=== PATIENT | female | born 1980 | race Caucasian/White ===

== ENCOUNTER → 2017-03-28 | Outpatient (CLI) | payer OTHER | LOC: FIMAGING 10:55 | PROVIDERS: ATTEND Advanced Practice Midwife | DX: O09.521 Supervision of elderly multigravida, first trimester (principal); Z3A.12 12 weeks gestation of pregnancy ==

== ENCOUNTER → 2017-05-18 | Outpatient (CLI) | payer OTHER | LOC: FIMAGING 07:50 | PROVIDERS: ATTEND Advanced Practice Midwife | DX: O09.522 Supervision of elderly multigravida, second trimester (principal); O34.219 Maternal care for unspecified type scar from previous cesarean delivery; Z3A.20 20 weeks gestation of pregnancy ==

== ENCOUNTER 2017-09-13 05:35 | Inpatient (IN) | payer OTHER ==
--- NOTE | 2017-08-30 18:17 | GHP ---
[f rep st] HISTORY AND PHYSICAL DATE OF ADMISSION: 09/13/2017 ADMITTING DIAGNOSES: 1. Intrauterine at 37 weeks. 2. Cholestasis of . 3. Previous section. 4. Repeat section, declines trial of labor. 5. Request for permanent sterilization, family status is complete. HISTORY OF PRESENT ILLNESS: Patient is a 37-year-old 3, para 1-0-1-1, at 37 weeks with estimated due date 10/04/2017 by LMP 12/28/2016, and consistent with first trimester ultrasound at 9 weeks. Patient presents to Labor and Delivery for repeat section and also requests permanent sterilization, stating family status is complete. She states good movement. Denies any leakage of fluid, vaginal bleeding, or contractions at this time. Patient does have good care at [facility], and presented in her first trimester. Patient has a history of a previous C- section and was induced secondary to cholestasis and then had an urgent C- section for failure of descent in 2nd stage of labor and chorioamnionitis at 38 weeks and 1 day. Patient also developed cholestasis in this , and has had reassuring testing, gets weekly labs that have remained stable, and is doing well on Ursodiol. [facility] has been following the patient and recommends delivery at 37 weeks. is also complicated by advanced maternal age, but NIPT is negative. A level 2 ultrasound revealed normal anatomy with an estimated weight in 84th percentile. 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 Patient did receive Tdap during the . She developed anemia of and tolerating iron. PAST OB HISTORY: In 1999, she had a therapeutic with a D and C. In 2010, she had a at 38 weeks, a viable female infant weighing 7 pounds. She was induced secondary to cholestasis. Age of menarche 11. Cycles are every 24 days for 2 days. LMP 12/28/2016. Patient denies a history of abnormal Pap smears. 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 Denies exposure to any sexually transmitted diseases. PAST MEDICAL HISTORY: She needed a blood transfusion for severe anemia with first . Migraine headaches, some are with aura. She had a major accident, left femur fracture at 8 years of age, and was hospitalized for 1 month. PAST SURGICAL HISTORY: ACL surgery x2, D and C, and . CURRENT MEDICATIONS: Include vitamins, iron, and Ursodiol. ALLERGIES: No known drug allergies. SOCIAL HISTORY: Patient is . She lives with her and their daughter. She works for the [employer]. She denies any alcohol, tobacco, illicit drug use. She is lactose intolerant. FAMILY HISTORY: Maternal uncle with atypical lung cancer. Maternal grandmother with Alzheimer disease. Sister has depression, anxiety. Mother is Cain-Sachs carrier. REVIEW OF SYSTEMS: 10-point review of systems negative. Pertinent positives noted in HPI. LABS: The patient is B negative, antibody negative. RPR nonreactive. Rubella immune. Hepatitis B surface antigen negative. HIV negative. 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 Father of baby is negative. Innatal screen negative. Patient did receive RhoGAM on 07/11/2017. One-hour Glucola 81. H and H 12.7 and 35.7. Single AFP was negative. Bile acids, elevated deoxycholic at 12.24. GBS cx unknown. PHYSICAL EXAMINATION: VITAL SIGNS: Stable. Patient is afebrile. GENERAL: Well-nourished well-developed female. CARDIOVASCULAR: Regular rate and rhythm. LUNGS: Clear to auscultation bilaterally. ABDOMEN: Gravid, soft, nontender. PELVIC: Deferred. EXTREMITIES: Normal to inspection without calf tenderness or edema. ASSESSMENT/PLAN: Patient is a 37-year-old 3, para 1-0-1-1, at 37 weeks with a previous section with cholestasis of , for a repeat section, and requests permanent sterilization, family status complete. 1. Admit to Labor and Delivery for RCS. 2. Discussed risks, benefits, alternatives of the procedure including but not limited to bleeding, infection, and damage to surrounding organs. Also discussed possible salpingectomy versus bilateral tubal ligation. Salpingectomy is for risk reduction of ovarian cancer. Discussed risk of ectopic and failure rate of bilateral tubal ligation. Will perform safest procedure at time of c/s with least risk of bleeding. Surgical consents were obtained. Patient understands all risks of the procedures and wants to proceed with surgery at this time. 3. Antibiotics orthodontic assistant to operating room. 4. Sequential compression devices for deep vein thrombosis prophylaxis. /[id number]/MODL MTDD
[2017-09-13] MEDS ORDERED: LR 500 ML IV ONE (06:34)
[2017-09-13] MEDS ORDERED: CITRIC ACID/SODIUM CITRATE 30 ML UDCUP PO ONE (06:34)
[2017-09-13] MEDS ORDERED: ceFAZolin 2 GM/DEXTROSE 100 ML IV ONE (06:34)
[2017-09-13 06:45] LABS: PLATELET COUNT 130 10^3/uL (150-400)
[2017-09-13] MEDS ORDERED: LR 1,000 ML IV SCH (07:00)
[2017-09-13] MEDS ORDERED: AMMONIA AROMATIC 1 EACH AMP IH ONE (07:09)
[2017-09-13] MEDS ORDERED: LIDOCAINE 1% 300 MG/30 ML SDV ONE (07:09)
[2017-09-13] MEDS ORDERED: OXYTOCIN 10 UNIT/ML VIAL ONE (07:09)
[2017-09-13] MEDS ORDERED: TERBUTALINE SULFATE 1 MG/ML VIAL ONE (07:09)
[2017-09-13] MEDS ORDERED: MISOPROSTOL 200 MCG TAB ONE (07:09)
[2017-09-13] MEDS ORDERED: OLIVE OIL 118 ML BTL ONE (07:09)
--- NOTE | 2017-09-13 07:32 | PREANESOB ---
Obstetric Pre-Anesthesia Info - General Info Proposed Procedure: Repeat C Section. : 3 Para: 1 - Info Status: Full Term Monitors: External FHR Baseline (bpm): 155 FHR Pattern: Reassuring - Labor Status Indications for Current Section: Elective/Repeat Labor Epidural: No Anesthesia ROS: Negative. Allergies/Adverse Reactions: Allergy/AdvReac Type Severity Reaction Status Date / Time No Known Allergies Allergy Verified 09/11/17 14:07 Home Medications: Medication Instructions Recorded Calcium Carbonate [Tums 500MG (*)] 500 mg PO DAILY PRN 09/11/17 Folic Acid [Folic Acid 1 MG (*)] 1 mg PO DAILY 09/11/17 Herbals/Supplements -Info Only 1 each PO DAILY 09/11/17 Norethindrone 0.35 mg PO DAILY 09/11/17 Vit27&Calcium/Iron/FA 1 each PO DAILY 09/11/17 [ Rx 1 Tablet (RX)] Ursodiol [Actigall 300MG (*)] 300 mg PO BID 09/11/17 Visit Medications: Generic Name Dose Route Start Last Admin Trade Name Freq PRN Reason Stop Dose Admin Lactated Ringer's 1,000 mls @ 125 mls/hr 09/13/17 07:00 Lr IV 09/14/17 06:59 CONT CHRISTINE Discontinued Medications Generic Name Dose Route Start Last Admin Trade Name Freq PRN Reason Stop Dose Admin Ammonia (Aromatic Spirit) Confirm 09/13/17 07:09 Ammonia Aromatic Administered 09/13/17 07:10 Dose 1 each IH .STK-MED ONE Citric Acid/Sodium Citrate 30 ml 09/13/17 06:34 Bicitra PO 09/13/17 06:35 ONCALL ONE Cefazolin Sodium/Dextrose 100 mls @ 200 mls/hr 09/13/17 06:34 Ancef 2 Gm IV 09/13/17 07:03 ONCALL ONE Protocol Lactated Ringer's 500 mls @ 0 mls/hr 09/13/17 06:34 Lr IV 09/13/17 06:35 ONCE ONE As Directed Lidocaine HCl Confirm 09/13/17 07:09 Lidocaine Hcl 1% Administered 09/13/17 07:10 Dose 300 mg .ROUTE .STK-MED ONE Misoprostol Confirm 09/13/17 07:09 Cytotec Administered 09/13/17 07:10 Dose 1,000 mcg .ROUTE .STK-MED ONE [place] Oil Confirm 09/13/17 07:09 Sweet Oil Administered 09/13/17 07:10 Dose 118 ml .ROUTE .STK-MED ONE Oxytocin Confirm 09/13/17 07:09 Pitocin Administered 09/13/17 07:10 Dose 40 unit .ROUTE .STK-MED ONE Terbutaline Sulfate Confirm 09/13/17 07:09 Brethine Administered 09/13/17 07:10 Dose 1 mg .ROUTE .STK-MED ONE - Anesthesia History Response to Local Anesthetics: Normal Anesthesia & Operative History: No Prior Problems Family Anesthesia History: Negative - Social History Substance Use/Abuse: Denies - Vital Signs Blood Pressure: 123/72 Heart Rate: 117 - Focused Exam Neck exam: FROM Mallampati Score: Class 2 Mouth exam: normal dental/mouth exam Pulmonary: no respiratory distress Cardiovascular: regular rate and rhythym Labs: 09/13/17 06:30 - Plan Anesthetic Plan: SAB Consent Signed and on Chart: Yes Patient/Guardian Understands and Agrees to Plan: Yes
[2017-09-13] MEDS ORDERED: fentaNYL 100 MCG/2 ML INJ ONE (07:38)
[2017-09-13] MEDS ORDERED: morphINE PF 5 MG/10 ML INJ ONE (07:38)
[2017-09-13] MEDS ORDERED: OXYTOCIN 100 UNITS/10 ML VIAL ONE (08:11)
[2017-09-13] MEDS ORDERED: PHENYLEPHRINE HCL 100 MCG/ML SYR ONE (08:12)
[2017-09-13] MEDS ORDERED: ONDANSETRON 4 MG/2 ML VIAL ONE (08:12)
[2017-09-13] MEDS ORDERED: DEXAMETHASONE 4 MG/ML VIAL ONE (08:12)
[2017-09-13] MEDS ORDERED: SCOPOLAMINE HYDROBROMIDE 1 MG/3 DAYS PATCH TD ONE ×2 (09:35→10:36)
[2017-09-13] MEDS ORDERED: DOCUSATE SODIUM 100 MG CAP PO PRN (09:38)
[2017-09-13] MEDS ORDERED: POLYETHYLENE GLYCOL 3350 17 GM PKT PO PRN (09:38)
[2017-09-13] MEDS ORDERED: MAGNESIUM HYDROXIDE 30 ML UDCUP PO PRN (09:38)
[2017-09-13] MEDS ORDERED: BISACODYL 10 MG SUPP PR PRN (09:38)
[2017-09-13] MEDS ORDERED: LACTULOSE 20 GM/30 ML UDCUP PO PRN (09:38)
[2017-09-13] MEDS ORDERED: PROMETHAZINE HCL 25 MG/ML INJ IVP PRN (09:38)
--- NOTE | 2017-09-13 09:47 | OBDEL ---
Info Type: Repeat Presentation at Delivery: Vertex L&D Analgesia/Anesthesia Type: Spinal GBS+: No Intrapartum Medications: Discontinued Medications Generic Name Dose Route Start Last Admin Trade Name Sondra PRN Reason Stop Dose Admin Citric Acid/Sodium Citrate 30 ml 09/13/17 06:34 09/13/17 07:40 Bicitra PO 09/13/17 06:35 30 ml ONCALL ONE Administration Cefazolin Sodium/Dextrose 100 mls @ 200 mls/hr 09/13/17 06:34 09/13/17 07:40 Ancef 2 Gm IV 09/13/17 07:03 100 mls ONCALL ONE Administration Protocol - Infant Care Provider Blood Bank Attendant/SAP PI ARCHITECT: Elba Hunter - Hospital Course Intrapartum: 09/13/17 09:44 IUP @ 37 weeks, previous c/s with cholestasis; request for permanent sterilization-family status complete Indications for Delivery: Elective (Previous c/s; Cholestasis of ; Request for permament sterilization-family status complete) Operative Report - Delivery Pre-op Diagnoses: IUP @ 37 weeks with previous c/s and cholestasis of ; request for permament sterilization-family status complete Post-op Diagnoses: IUP @ 37 weeks with previous c/s and cholestasis of ; request for permament sterilization-family status complete History of Prior Section: Yes Number of Prior Sections: 1 Nulliparous Prior to Delivery: No Indications for Prior Section: Other (Specify) (Arrest of descent; chorio) Indications for Current Section: Elective/Repeat (Cholestasis of ) Procedure: Scheduled, Low Transverse, Tubal Ligation (Modified Dank) Surgeon: Mellissa Brunson Rfid Analyst: Safia Galvin Anesthesiologist: Alex Rojas Complications: None Findings: A viable female born at 0827 in cephalic presentation with 9 and 9 Apgars. Delayed cord clamping x 60 sec. to waiting [facility]. Cord blood obtained. Placenta delivered spontaneously intact with 3-vc, suspect abruption- sent to pathology. DAILY thin upon making hysterotomy. Grossly normal appearing uterus, tubes and ovaries. Modified Butler technique for BTL-portions of b/l tubes sent to path. Pt sahil well. No complications. Specimen(s)/Path: Placenta, Fallopian Tube(s) IV Fluid (ml): 3,200 EBL: 800cc UO: 300 cc clear urine [place] Data DONI: 10/04/17 Gestational Age: 37 week(s) and 0 day(s) [place] Delivery Date: 09/13/17 Delivery Time: 08:27 Sex of Infant: Female Score (1 Min): 9 Score (5 Min): 9 ICD10 Worksheet Patient Problems: Problems Problem Status Onset Cholestasis during Acute Previous delivery affecting Acute Status post repeat low transverse section Acute Sterilization Acute - ICD10 Problem Qualifiers (1) Cholestasis during (2) Previous delivery affecting (3) Sterilization (4) Status post repeat low transverse section
--- NOTE | 2017-09-13 09:56 | PDHPUP ---
History & Physical Update H&P update statement: This history and physical update is based on an assessment of the patient which was completed after admission or registration (within 24 hours), but prior to the surgery/procedure. H&P update: H&P reviewed & patient examined, no change in patient's condition since H&P completed
[2017-09-13] MEDS ORDERED: ONDANSETRON 4 MG/2 ML VIAL IVP PRN (10:34)
[2017-09-13] MEDS ORDERED: PHENYLEPHRINE HCL 100 MCG/ML SYR IVP PRN (10:34)
[2017-09-13] MEDS ORDERED: NALOXONE HCL 0.4 MG/ML INJ IVP PRN (10:34)
--- NOTE | 2017-09-13 10:37 | POSTANESTH ---
Post Anesthetic Evaluation Cardiovascular Status: Normal, Stable, Similar to Pre-Op Cond Respiratory Status: Normal, Stable, Similar to Pre-op Cond. Level of Consciousness/Mental Status: Can Participate in Eval, Alert and Oriented Pain Control: Adequate, Prn Tx Ordered Nausea/Vomiting Control: Adequate, Prn Tx Ordered Complications Possibly Related to Anesthesia: None Noted
[2017-09-13] MEDS: KETOROLAC 30 MG/1 ML SDV IVP SCH ×2 (11:45→18:36)
[2017-09-14] MEDS: SENNOSIDES/DOCUSATE SODIUM TAB PO SCH ×3 (00:07→20:35)
[2017-09-14] MEDS: KETOROLAC 30 MG/1 ML SDV IVP SCH ×2 (00:07→05:55)
[2017-09-14 05:25] LABS: PLATELET COUNT 110 10^3/uL (150-400)
--- NOTE | 2017-09-14 08:18 | GOP ---
[f rep st] OPERATIVE REPORT DATE OF OPERATION: 09/13/2017 SURGEON: Mellissa Brunson DO PEARL MAKER: Safia Galvin CNM. ANESTHESIA: Spinal. ANESTHESIOLOGIST: Alex Rojas MD. PREOPERATIVE DIAGNOSIS: Intrauterine at 37 weeks, previous , with cholestasis of . Request for permanent sterilization, family status is complete. POSTOPERATIVE DIAGNOSIS: Intrauterine at 37 weeks, previous , with cholestasis of . Request for permanent sterilization, family status is complete. PROCEDURE PERFORMED: Repeat section, bilateral tubal ligation via modified Vancleve technique. FINDINGS: A viable female born at 0827, in cephalic presentation with 9 and 9 Apgars. Delayed cord clamp x60 seconds. Cord blood obtained. Placenta delivered spontaneously intact with 3-vessel cord. Suspect abruption, placenta sent to Pathology. Lower uterine segment was noted to be thin upon hysterotomy. Grossly normal appearing uterus, tubes, and ovaries. SPECIMENS: Placenta and portions of bilateral tubes. ESTIMATED BLOOD LOSS: 800 cc. INDICATIONS: The patient is a 37-year-old 3, para 1-0-1-1 at 37 weeks who presents for a repeat section. She requests permanent sterilization at this time, stating family status is complete. The patient has a history of a previous induced secondary to cholestasis and then had an urgent with failure of descent in second stage of labor and chorioamnionitis. The patient also developed cholestasis in this and has had reassuring testing. She has gotten weekly labs and remained stable and is doing well on the Ursodiol. [facility] has been following the patient and recommended delivery at 37 weeks. Surgical consents were obtained. Discussed risks, benefits, alternatives of the procedure including but not limited to, bleeding, infection, damage of surrounding organs, and possible hysterectomy as well as risks of the bilateral tubal ligation including failure rate and risk ectopic which is less than 2%. Patient understands all risks of the surgery at this time and wants to proceed. Patient was properly consented. DESCRIPTION OF PROCEDURE: The patient was taken to the operating room where spinal anesthesia was obtained without difficulty. The patient was then placed in dorsal supine position with leftward tilt. The patient was then prepped and draped in the usual standard fashion. Donald catheter was placed at this time. After WHO time-out was performed, a Pfannenstiel skin incision was made in the old scar and carried through to the fascia with the Bovie. The fascia was then incised in the midline and extended laterally using the Blake scissors. Superior aspect of the incision was grasped with Corina clamps and the underlying rectus muscles were then dissected away sharply using the Blake scissors. In a similar fashion, the inferior aspect of the incision was grasped with Corina clamps and the rectus muscles were dissected away sharply using the Blake scissors. Rectus muscles were then in the midline. The peritoneum was then identified and entered bluntly taking care to avoid the bladder. The vesicouterine peritoneum was then identified and grasped with pickups and entered sharply with the Metzenbaum scissors. A bladder flap was then created digitally and a bladder blade was then inserted. The lower uterine segment was visualized and a low transverse uterine incision was then made with a knife and extended anteriorly and posteriorly in a blunt fashion. Clear fluid was noted upon entry of the amniotic sac. The vertex was able to be grasped, and elevated up to the incision. The remainder of the fetus was delivered easily with the assistance of fundal pressure. Delayed cord clamping did occur for 60 seconds. The cord was then clamped x2 and cut. handed to [facility]. Cord blood was obtained. Placenta was then delivered spontaneously intact with a 3-vessel cord. It did look like there was an abruption, so placenta was sent to Pathology. The uterus was then exteriorized and cleared of all clots and debris. The hysterotomy was then repaired in 2 layers with 0 Vicryl suture. First layer was a running locked stitch of 0 Vicryl. Hemostasis was noted. The second layer was an imbricating layer also with 0 Vicryl suture. Uterine incision was inspected, and appeared hemostatic. We then turned our attention to fallopian tubes. The right tube was visualized and grasped with a Melchor clamp. It was followed out to fimbria. We decided to do a tubal ligation secondary to increased vasculature and risk of bleeding. A 3 cm segment of tube was then suture ligated with plain gut x2 and excised. Good hemostasis was noted and the lumen of tube was cauterized. Similar procedure was done on the left side. Portions of bilateral tubes were sent to pathology. No bleeding was noted. At this time, the uterus was then placed back inside the abdomen. The gutters were cleared of all clots and debris. Uterine incision was then visualized again and there was some bleeding noted from left angle, so [id number] stitch of 0 Vicryl was used and Farhan was placed on the uterine incision and hemostasis was achieved. The muscles were then reapproximated using 3-0 Vicryl. The fascia was then closed with 0 Vicryl in a running fashion. Hemostasis was noted. The subcutaneous layer was closed with 2-0 Vicryl in a running fashion. Skin was then with 4-0 Vicryl on a Benny needle. The patient tolerated the procedure well. No complications. Sponge, lap, and needle counts correct x2. The patient was then taken out of the dorsal supine position leftward tilt and sent to recovery room and PACU in stable condition. IV FLUIDS: 3200 cc LR. URINE OUTPUT: 300 cc of clear urine at the end of the procedure. /[id number]/MODL MTDD
--- NOTE | 2017-09-14 09:59 | OBPP ---
Progress Note Assessment/Plan: Assessment: [id number] s/p repeat c/s cholestasis in POD#1 Plan: routine PO care promote flatus ambulate support PRN plan d/c home 24-48hrs 09/14/17 09:45 09/14/17 10:05 Subjective/ Course: 09/14/17 09:46 Pt doing well, she denies any pain or bleeding. She is OOB and eating breakfast. She is . She is ambulating and voiding without difficulty. FOB at BS, supportive. Denies any flatus. 09/14/17 09:47 Objective: 09/14/17 05:10 Patient ABO/Rh B NEGATIVE 09/13/17 10:35 Temp Pulse Resp BP Pulse Ox 36.3 C 60 16 82/47 L 95 09/14/17 08:17 09/14/17 08:17 09/14/17 08:17 09/14/17 08:17 09/14/17 08:17 Uterine Position/Fundal Height: Umbilicus -1, Midline Uterine Tone: Firm
[2017-09-14] MEDS ORDERED: PATCH REMOVAL 1 EA PATCH TD ONE (10:36)
[2017-09-14] MEDS: SIMETHICONE 80 MG TAB CHEW PO PRN ×2 (12:10→19:05)
[2017-09-14] MEDS: IBUPROFEN 600 MG TAB PO PRN ×2 (12:10→18:10)
[2017-09-14] MEDS: HYDROCODONE/APAP 5/325 TAB PO PRN ×3 (13:09→20:34)
[2017-09-15] MEDS: IBUPROFEN 600 MG TAB PO PRN ×2 (00:25→06:25)
[2017-09-15] MEDS: HYDROCODONE/APAP 5/325 TAB PO PRN ×3 (00:49→11:09)
[2017-09-15] MEDS: SENNOSIDES/DOCUSATE SODIUM TAB PO SCH (09:14)
--- NOTE | 2017-09-15 11:00 | OBPP ---
Progress Note Assessment/Plan: Assessment: 37 yo [id number], POD#2 s/p R-C/S with bilateral salpingectomy - doing well. Plan:DC home, routine post op/pp cares, instructions and ssx pp depression reviewed. See DC summary. 09/15/17 10:56 Subjective/ Course: 09/14/17 09:46 Pt doing well, she denies any pain or bleeding. She is OOB and eating breakfast. She is . She is ambulating and voiding without difficulty. FOB at BS, supportive. Denies any flatus. 09/14/17 09:47 09/15/17 10:57 Doing well, Ambulating, voiding, sahil reg diet, min lochia. BF going well. + flatus. Objective: 09/14/17 05:10 Patient ABO/Rh B NEGATIVE 09/13/17 10:35 Temp Pulse Resp BP Pulse Ox 37.1 C 71 14 98/62 L 95 09/14/17 20:43 09/14/17 20:43 09/14/17 20:43 09/14/17 20:43 09/14/17 20:43 gen - pleasant, Nad cv - RRR CHEST - CTAB abd - gravid, soft, + BS, fundus firm u-2, incision - C/D/I, small open sore above incision c/w mole removal ext - calves NT, trace edema Uterine Position/Fundal Height: Umbilicus -2 Uterine Tone: Firm
[2017-09-15 11:05] VITALS: BP 113/64
--- NOTE | 2017-09-15 12:23 | OBGCSDC ---
General Delivery Information - General Info : 3 Para: 2 Abortions: 1 Type: Repeat L&D Analgesia/Anesthesia Type: Spinal Admission Date: 09/13/17 Labs: Patient ABO/Rh B NEGATIVE 09/13/17 10:35 Hct 28.9 % (38.0-47.0) L 09/14/17 05:10 - Hospital Course Intrapartum: 09/13/17 09:44 IUP @ 37 weeks, previous c/s with cholestasis; request for permanent sterilization-family status complete : 09/14/17 09:46 Pt doing well, she denies any pain or bleeding. She is OOB and eating breakfast. She is . She is ambulating and voiding without difficulty. FOB at BS, supportive. Denies any flatus. 09/14/17 09:47 09/15/17 10:57 Doing well, Ambulating, voiding, sahil reg diet, min lochia. BF going well. + flatus. - Delivery Providers Surgeon: Mellissa Brunson Animal Rides Manager: Safia Galvin Anesthesiologist: Alex Rojas - Delivery Number of Prior Sections: 1 Indications for Current Section: Elective/Repeat (Cholestasis of ) Surgical Procedures: Scheduled, Low Transverse, Tubal Ligation (Modified Dank ) Intra-op Complications: None EBL: 800cc UO: 300 cc clear urine Data DONI: 10/04/17 Gestational Age: 37 week(s) and 2 day(s) [place] Delivery Date: 09/13/17 Delivery Time: 08:28 Sex of : Female Weight (gm): 3286 kg Score (1 Min): 9 Score (5 Min): 9 Discharge Information - Discharge Information Prescriptions: Hydrocodone/APAP 5/325 [Pool 5/325 (*)] 1 - 2 tab PO Q4HRS PRN #30 tab PRN Reason: Pain, Moderate Condition: Good Instruction/Follow Up: See Instruction Sheet, Two Weeks, Four Weeks, Six Weeks
== END 2017-09-15 14:45 | disposition home or self-care (01) | DRG 765 ==
LOC: FLD 05:35 → FOB 11:13
PROVIDERS: ADMIT Obstetrics & Gynecology; ATTEND Obstetrics & Gynecology
PROC: 0UB70ZZ Excision of Bilateral Fallopian Tubes, Open Approach (ICD-10-PCS; principal; 2017-09-13)
PROC: 10D00Z1 Extraction of Products of Conception, Low, Open Approach (ICD-10-PCS; principal; 2017-09-13)
DX: O34.219 Maternal care for unspecified type scar from previous cesarean delivery (principal); K83.1 Obstruction of bile duct; O26.62 Liver and biliary tract disorders in childbirth; Z37.0 Single live birth; Z3A.37 37 weeks gestation of pregnancy
CPT/HCPCS: J0690; J1100; J1885; J2274; J2370; J2405; J2590; J3010; J3105